=== PATIENT | male | born 1985 | race Caucasian/White ===

== ENCOUNTER 2018-08-16 16:30 | Outpatient (CLI) | payer BC ==
--- NOTE | 2018-08-16 18:31 | RAD ---
THREE VIEWS OF THE LEFT WRIST: 08/16/18 COMPARISON: None. HISTORY: Fall, injury, pain. FINDINGS: There is no widening of the scapholunate interval. There is no displaced fracture or evidence of disl ocation noted. IMPRESSION: No acute fracture or evidence of dislocation. If there is clinical concern for a radial occult fracture of the scaphoid bone, MRI or bone scan is a dvised. POS: [facility]
== END 2018-08-16 16:31 | disposition home or self-care (01) ==
LOC: SCSRAD 16:30
PROVIDERS: ATTEND Family Medicine
DX: M25.532 Pain in left wrist (principal)